=== PATIENT | male | born 1980 | race Caucasian/White ===

== ENCOUNTER 2018-04-02 09:13 | Inpatient (IN) | payer SELFPAY ==
[~2018-04-02] VITALS: Ht 177.8 cm; Wt 81.6 kg
[~2018-04-02 09:13] MED LIST: BACL10TA PO; CYCL10TA2 PO; HYDR-2762 PO; HYDR-2766 PO; IBUP-1060 PO; VENL75CA PO
[2018-04-02] MEDS ORDERED: IV NORMAL SALINE 1000ML BAG 1,000 ML IV ONE ×2 (09:45→15:00)
[2018-04-02 09:56] LABS: BASO # 0.1 x10^3/uL (0.0-0.2); BASO % 1 % (0-3); EOS % 0 % (0-3); HEMATOCRIT 40.5 % (39.0-53.0); HEMOGLOBIN 13.9 g/dL (13.0-17.5); LYMPH # 2.8 x10^3/uL (1.0-4.8); LYMPH % 33 % (24-48); MEAN CORPUSCULAR HEMOGLOBIN 30 pg (25-35); MEAN CORPUSCULAR HGB CONC 34 g/dL (31-37); MEAN CORPUSCULAR VOLUME 86 fL (79-100); MONO # 0.8 x10^3/uL (0.0-1.1); MONO % 9 % (0-9); NEUT % 58 % (31-73); PLATELET COUNT 414 x10^3/uL (140-400); RED CELL DISTRIBUTION WIDTH 13.2 % (11.5-14.5); WHITE BLOOD COUNT 8.7 x10^3/uL (4.0-11.0)
[2018-04-02 10:11] LABS: CALCIUM 10.3 mg/dL (8.5-10.1); CREATININE 1.2 mg/dL (0.7-1.3); GFR 68.9; POTASSIUM 3.4 mmol/L (3.5-5.1)
[2018-04-02 10:16] LABS: ALBUMIN 4.3 g/dL (3.4-5.0); TOTAL BILIRUBIN 0.5 mg/dL (0.2-1.0); TOTAL PROTEIN 8.5 g/dL (6.4-8.2)
[2018-04-02 10:17] LABS: ACETAMIN < 2 mcg/ml (10-30)
[2018-04-02 10:18] LABS: ETHANOL < 10 mg/dL (0-10)
--- NOTE | 2018-04-02 10:20 | EKG ---
[facility] [address] [place] [address] Test Date: 2018-04-02 Test Time: 10:09:28 Pat Name: JERRELL MARTIN Department: Room: Gender: M Bulk Mail Clerk: : 1980 Requested By: CORRIE AZEVEDO Order Number: [id number] Reading MD: Jose Ellsworth MD Measurements Intervals Delight Rate: 100 P: 32 OH: 128 QRS: 29 QRSD: 98 T: 26 QT: 346 QTc: 449 Interpretive Statements SINUS RHYTHM Electronically Signed On 04-06-2018 10:57:46 CDT by Jose Ellsworth MD
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
[2018-04-02 11:39] LABS: BARBITURATES NEG (NEG); BENZODIAZEPINES NEG (NEG); CANNABINOIDS POS (NEG); COCAINE NEG (NEG); METHADONE NEG (NEG); OPIATES POS (NEG); PHENCYCLIDINE NEG (NEG)
[2018-04-02 11:49] LABS: AMPHETAMINE/METHAMPHETAMINE POS (NEG)
[2018-04-02] MEDS ORDERED: ZIPRASIDONE IM 20 MG VIAL. IM ONE ×2 (14:05→14:15)
[2018-04-02] MEDS ORDERED: HALOPERIDOL LACTATE 5 MG/ML VIAL. IM ONE (17:15)
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
[2018-04-02] MEDS ORDERED: HALOPERIDOL LACTATE 5 MG/ML VIAL. IVP PRN (18:15)
[2018-04-02 18:19] VITALS: BP 107/68
[2018-04-03 03:00] VITALS: BP 103/78
[2018-04-03 07:00] VITALS: BP 125/86
[2018-04-03] MEDS ORDERED: POTASSIUM CHLORIDE 20 MEQ TABLET.ER. PO SCH (08:00)
[2018-04-03 11:00] VITALS: BP 121/79
--- NOTE | 2018-04-03 11:19 | PDOC ---
PROGRESS NOTES Chief Complaint Chief Complaint acute toxic encephalopathy drug induced psychosis psychotic behaviour in the ER, History of Present Illness History of Present Illness PAT team discussed, he is repeated behavior, may need placement will try to DC 1:1 Vitals Vitals Vital Signs Date Time Temp Pulse Resp B/P (MAP) Pulse Ox O2 Delivery O2 Flow Rate FiO2 04/03/18 08:00 Room Air 04/03/18 07:00 98.7 80 20 125/86 (99) 96 98.7 Physical Exam General: Alert, Cooperative, No acute distress, Other Heart: Regular rate Abdomen: Normal bowel sounds, Soft Extremities: No edema, Normal pulses Skin: No rashes Labs LABS Laboratory Tests Test 04/02/18 11:26 Urine Opiates Screen Pos (NEG) Urine Methadone Screen Neg (NEG) Urine Barbiturates Neg (NEG) Urine Phencyclidine Screen Neg (NEG) Urine Amphetamine/Methamphetamine Pos (NEG) Urine Benzodiazepines Screen Neg (NEG) Urine Cocaine Screen Neg (NEG) Urine Cannabinoids Screen Pos (NEG) Urine Ethyl Alcohol Neg (NEG) Assessment and Plan Assessmemt and Plan Problems Medical Problems: (1) Anxiety Status: Acute (2) Drug-induced psychotic disorder with hallucinations Status: Acute (3) Methamphetamine abuse Status: Acute (4) Methamphetamine intoxication Status: Acute Comment Review of Relevant I have reviewed the following items alexey (where applicable) has been applied. Labs Laboratory Tests Test 04/02/18 09:40 04/02/18 11:26 White Blood Count 8.7 x10^3/uL (4.0-11.0) Red Blood Count 4.70 x10^6/uL (4.30-5.70) Hemoglobin 13.9 g/dL (13.0-17.5) Hematocrit 40.5 % (39.0-53.0) Mean Corpuscular Volume 86 fL (79-100) Mean Corpuscular Hemoglobin 30 pg (25-35) Mean Corpuscular Hemoglobin Concent 34 g/dL (31-37) Red Cell Distribution Width 13.2 % (11.5-14.5) Platelet Count 414 x10^3/uL (140-400) Neutrophils (%) (Auto) 58 % (31-73) Lymphocytes (%) (Auto) 33 % (24-48) Monocytes (%) (Auto) 9 % (0-9) Eosinophils (%) (Auto) 0 % (0-3) Basophils (%) (Auto) 1 % (0-3) Neutrophils # (Auto) 5.0 x10^3uL (1.8-7.7) Lymphocytes # (Auto) 2.8 x10^3/uL (1.0-4.8) Monocytes # (Auto) 0.8 x10^3/uL (0.0-1.1) Eosinophils # (Auto) 0.0 x10^3/uL (0.0-0.7) Basophils # (Auto) 0.1 x10^3/uL (0.0-0.2) Sodium Level 141 mmol/L (136-145) Potassium Level 3.4 mmol/L (3.5-5.1) Chloride Level 101 mmol/L (98-107) Carbon Dioxide Level 23 mmol/L (21-32) Anion Gap 17 (6-14) Blood Urea Nitrogen 17 mg/dL (8-26) Creatinine 1.2 mg/dL (0.7-1.3) Estimated GFR (Cockcroft-Gault) 68.9 BUN/Creatinine Ratio 14 (6-20) Glucose Level 100 mg/dL (70-99) Calcium Level 10.3 mg/dL (8.5-10.1) Total Bilirubin 0.5 mg/dL (0.2-1.0) Aspartate Amino Transf (AST/SGOT) 21 U/L (15-37) Alanine Aminotransferase (ALT/SGPT) 40 U/L (16-63) Alkaline Phosphatase 86 U/L (46-116) Total Protein 8.5 g/dL (6.4-8.2) Albumin 4.3 g/dL (3.4-5.0) Albumin/Globulin Ratio 1.0 (1.0-1.7) Salicylates Level 3.0 mg/dL (2.8-20.0) Salicylate Last Dose Date Ukn Salicylate Last Dose Time Ukn Acetaminophen Level < 2 mcg/ml (10-30) Acetaminophen Last Dose Date Ukn Acetaminophen Last Dose Time Ukn Ethyl Alcohol Level < 10 mg/dL (0-10) Urine Opiates Screen Pos (NEG) Urine Methadone Screen Neg (NEG) Urine Barbiturates Neg (NEG) Urine Phencyclidine Screen Neg (NEG) Urine Amphetamine/Methamphetamine Pos (NEG) Urine Benzodiazepines Screen Neg (NEG) Urine Cocaine Screen Neg (NEG) Urine Cannabinoids Screen Pos (NEG) Urine Ethyl Alcohol Neg (NEG) Laboratory Tests Test 04/02/18 11:26 Urine Opiates Screen Pos (NEG) Urine Methadone Screen Neg (NEG) Urine Barbiturates Neg (NEG) Urine Phencyclidine Screen Neg (NEG) Urine Amphetamine/Methamphetamine Pos (NEG) Urine Benzodiazepines Screen Neg (NEG) Urine Cocaine Screen Neg (NEG) Urine Cannabinoids Screen Pos (NEG) Urine Ethyl Alcohol Neg (NEG) Medications Current Medications Sodium Chloride 1,000 ml @ 1,000 mls/hr 1X ONCE IV Last administered on at 09:53; Start 04/02/18 at 09:45; Stop 04/02/18 at 10:44; Status DC Lorazepam (Ativan) 1 mg 1X ONCE IV Last administered on 04/02/18at 09:54; Start 04/02/18 at 09:45; Stop 04/02/18 at 09:46; Status DC Lorazepam (Ativan) 1 mg 1X ONCE IV ; Start 04/02/18 at 13:45; Stop 04/02/18 at 13:46; Status DC Ziprasidone (Geodon Im) 20 mg 1X ONCE IM Last administered on 04/02/18at 14:20 ; Start 04/02/18 at 14:15; Stop 04/02/18 at 14:18; Status DC Ziprasidone (Geodon Im) 20 mg STK-MED ONCE IM ; Start 04/02/18 at 14:05; Stop 04/02/18 at 14:07; Status DC Sodium Chloride 1,000 ml @ 1,000 mls/hr 1X ONCE IV Last administered on at 16:59; Start 04/02/18 at 15:00; Stop 04/02/18 at 15:59; Status DC Lorazepam (Ativan) 2 mg 1X ONCE IV ; Start 04/02/18 at 16:15; Stop 04/02/18 at 16:16; Status DC Haloperidol Lactate (Haldol Inj) 5 mg 1X ONCE IM Last administered on at 17:00; Start 04/02/18 at 17:15; Stop 04/02/18 at 17:16; Status DC Haloperidol Lactate (Haldol Inj) 5 mg PRN Q6HRS PRN IVP AGITATION Last administered on 04/02/18at 19:41; Start 04/02/18 at 18:15 Lorazepam (Ativan) 2 mg PRN Q4HRS PRN IV ANXIETY / AGITATION Last administered on 04/03/18at 08:07; Start 04/02/18 at 18:15 Potassium Chloride (Klor-Con) 20 meq [id number] PO Last administered on at 08:07; Start 04/03/18 at 08:00 Lorazepam (Ativan) 2 mg 1X ONCE IV Last administered on 04/03/18at 01:00; Start 04/03/18 at 01:00; Stop 04/03/18 at 01:01; Status DC Active Scripts Active Reported Cyclobenzaprine Hcl 10 Mg Tablet 1 Tab PO TID PRN Hydrocodone-Apap 10-325 (Hydrocodone Bit/Acetaminophen) 1 Each Tablet 1 Tab PO PRN Q6HRS PRN Effexor Xr (Venlafaxine Hcl) 75 Mg Cap.er.24h 1.5 Cap PO BID Ibuprofen 800 Mg Tablet 800 Mg PO TID PRN Vitals/I & O Vital Sign - Last 24 Hours 04/02/18 04/02/18 04/02/18 04/02/18 11:23 14:27 15:00 15:30 Pulse 128 118 98 88 Resp 28 28 20 14 B/P (MAP) 136/86 (103) 98/55 (69) 96/47 (63) 87/57 (67) Pulse Ox 94 94 92 98 O2 Delivery Room Air Room Air Room Air Room Air 04/02/18 04/02/18 04/02/18 04/02/18 16:00 16:30 17:00 17:30 Pulse 88 92 84 92 Resp 20 18 20 18 B/P (MAP) 98/57 (71) 93/55 (68) 105/65 (78) 119/67 (84) Pulse Ox 98 98 98 98 O2 Delivery Room Air Room Air Room Air Room Air 04/02/18 04/02/18 04/03/18 04/03/18 18:19 20:00 03:00 07:00 Temp 98.7 98.2 98.7 98.7 98.2 98.7 Pulse 81 74 80 Resp 20 16 20 B/P (MAP) 107/68 (81) 103/78 (86) 125/86 (99) Pulse Ox 100 98 96 O2 Delivery Room Air Room Air Room Air Room Air 04/03/18 08:00 O2 Delivery Room Air Intake and Output 04/02/18 04/02/18 04/03/18 15:00 23:00 07:00 Intake Total 1000 ml Output Total 0 ml Balance 1000 ml 0 ml CHERRI SHANKS MD Apr 03, 2018 11:19
[2018-04-03] MEDS ORDERED: VENL75CA PO (12:43)
--- NOTE | 2018-04-03 12:47 | PDOC3 ---
Discharge Summary Visit Information Date of Admission: Apr 02, 2018 Date of Discharge: Apr 03, 2018 Admitting Diagnosis: delirium, agitation, Final Diagnosis acute toxic encephalopathy drug induced psychosis psychotic behaviour in the ER, depression, had been off meds substance abuse, meth, THC, painmeds Problems Medical Problems: (1) Anxiety Status: Acute (2) Drug-induced psychotic disorder with hallucinations Status: Acute (3) Methamphetamine abuse Status: Acute (4) Methamphetamine intoxication Status: Acute Brief Hospital Course Allergies Allergies Coded Allergies Type Severity Reaction Last Updated Verified tramadol Adverse Reaction Severe 12/14/15 Yes Vital Signs Vital Signs Date Time Temp Pulse Resp B/P (MAP) Pulse Ox O2 Delivery O2 Flow Rate FiO2 04/03/18 11:00 98.0 57 20 121/79 (93) 93 Room Air 98.0 Lab Results Laboratory Tests Test 04/02/18 09:40 04/02/18 11:26 White Blood Count 8.7 x10^3/uL (4.0-11.0) Red Blood Count 4.70 x10^6/uL (4.30-5.70) Hemoglobin 13.9 g/dL (13.0-17.5) Hematocrit 40.5 % (39.0-53.0) Mean Corpuscular Volume 86 fL (79-100) Mean Corpuscular Hemoglobin 30 pg (25-35) Mean Corpuscular Hemoglobin Concent 34 g/dL (31-37) Red Cell Distribution Width 13.2 % (11.5-14.5) Platelet Count 414 x10^3/uL (140-400) Neutrophils (%) (Auto) 58 % (31-73) Lymphocytes (%) (Auto) 33 % (24-48) Monocytes (%) (Auto) 9 % (0-9) Eosinophils (%) (Auto) 0 % (0-3) Basophils (%) (Auto) 1 % (0-3) Neutrophils # (Auto) 5.0 x10^3uL (1.8-7.7) Lymphocytes # (Auto) 2.8 x10^3/uL (1.0-4.8) Monocytes # (Auto) 0.8 x10^3/uL (0.0-1.1) Eosinophils # (Auto) 0.0 x10^3/uL (0.0-0.7) Basophils # (Auto) 0.1 x10^3/uL (0.0-0.2) Sodium Level 141 mmol/L (136-145) Potassium Level 3.4 mmol/L (3.5-5.1) Chloride Level 101 mmol/L (98-107) Carbon Dioxide Level 23 mmol/L (21-32) Anion Gap 17 (6-14) Blood Urea Nitrogen 17 mg/dL (8-26) Creatinine 1.2 mg/dL (0.7-1.3) Estimated GFR (Cockcroft-Gault) 68.9 BUN/Creatinine Ratio 14 (6-20) Glucose Level 100 mg/dL (70-99) Calcium Level 10.3 mg/dL (8.5-10.1) Total Bilirubin 0.5 mg/dL (0.2-1.0) Aspartate Amino Transf (AST/SGOT) 21 U/L (15-37) Alanine Aminotransferase (ALT/SGPT) 40 U/L (16-63) Alkaline Phosphatase 86 U/L (46-116) Total Protein 8.5 g/dL (6.4-8.2) Albumin 4.3 g/dL (3.4-5.0) Albumin/Globulin Ratio 1.0 (1.0-1.7) Salicylates Level 3.0 mg/dL (2.8-20.0) Salicylate Last Dose Date Ukn Salicylate Last Dose Time Ukn Acetaminophen Level < 2 mcg/ml (10-30) Acetaminophen Last Dose Date Ukn Acetaminophen Last Dose Time Ukn Ethyl Alcohol Level < 10 mg/dL (0-10) Urine Opiates Screen Pos (NEG) Urine Methadone Screen Neg (NEG) Urine Barbiturates Neg (NEG) Urine Phencyclidine Screen Neg (NEG) Urine Amphetamine/Methamphetamine Pos (NEG) Urine Benzodiazepines Screen Neg (NEG) Urine Cocaine Screen Neg (NEG) Urine Cannabinoids Screen Pos (NEG) Urine Ethyl Alcohol Neg (NEG) Brief Hospital Course Mr. Mckinnon is a 37 old MALE admit for drug induced psychosis, meth abuse, PAT team discussed, he is repeated behavior, was on 1:1 onvernight, then better will follow up outpatient, depression med restarted Discharge Information Condition at Discharge: Improved Follow Up: Weeks Disposition/Orders: D/C to Home Scheduled Venlafaxine Hcl (Effexor Xr) 75 Mg Cap.er.24h, 1 CAP PO BID, #60 Prescribed by: CHERRI SHANKS on 04/03/18 1243 Scheduled PRN Cyclobenzaprine Hcl (Cyclobenzaprine Hcl) 10 Mg Tablet, 1 TAB PO TID PRN for MUSCLE SPASMS, #90 (Reported) Entered as Reported by: LUIS REZA on 03/18/16 0852 Hydrocodone Bit/Acetaminophen (Hydrocodone-Apap 10-325 ) 1 Each Tablet, 1 TAB PO PRN Q6HRS PRN for PAIN, Ref 0 (Reported) Entered as Reported by: LUIS REZA on 03/18/16 0852 Ibuprofen (Ibuprofen) 800 Mg Tablet, 800 MG PO TID PRN for INFLAMMATION, ( Reported) Entered as Reported by: LUIS REZA on 12/14/15 1125 Patient Instructions Patient Instructions > 30 min CHERRI SHANKS MD Apr 03, 2018 12:47
[2018-04-03 15:00] VITALS: BP 122/83
== END 2018-04-03 18:15 | disposition home or self-care (01) | DRG 896 ==
LOC: ER 09:13 → 5 SOUTH 16:05
PROVIDERS: ADMIT Internal Medicine; ATTEND Internal Medicine
DX: F15.159 Other stimulant abuse with stimulant-induced psychotic disorder, unspecified (principal); G92 Toxic encephalopathy; R45.851 Suicidal ideations; F15.129 Other stimulant abuse with intoxication, unspecified; E78.00 Pure hypercholesterolemia, unspecified; F17.200 Nicotine dependence, unspecified, uncomplicated; F41.9 Anxiety disorder, unspecified; F12.10 Cannabis abuse, uncomplicated; I10 Essential (primary) hypertension; F31.9 Bipolar disorder, unspecified; Z88.8 Allergy status to other drugs, medicaments and biological substances; Z79.899 Other long term (current) drug therapy
CPT/HCPCS: 36415; 80053; 80307; 80329; 85025; 93005; 96361; 96372; 96374; G0480; G6039; J1630; J2060; J3486; J7030; 99285-25; G0479

== ENCOUNTER 2018-11-21 20:58 | Emergency (ER) | payer SELFPAY ==
[~2018-11-21] VITALS: Ht 175.3 cm; Wt 80.5 kg
[~2018-11-21 20:58] MED LIST changes: -HYDR-2762 PO; +HYDR-2765 PO; -HYDR-2766 PO; +HYDR-2769 PO
[2018-11-21 21:25] LABS: BASO # 0.1 x10^3/uL (0.0-0.2); BASO % 1 % (0-3); EOS # 0.1 x10^3/uL (0.0-0.7); EOS % 1 % (0-3); HEMATOCRIT 41.4 % (39.0-53.0); HEMOGLOBIN 14.3 g/dL (13.0-17.5); LYMPH # 2.4 x10^3/uL (1.0-4.8); LYMPH % 22 % (24-48); MEAN CORPUSCULAR HEMOGLOBIN 29 pg (25-35); MEAN CORPUSCULAR HGB CONC 35 g/dL (31-37); MEAN CORPUSCULAR VOLUME 84 fL (79-100); MONO # 0.6 x10^3/uL (0.0-1.1); MONO % 6 % (0-9); NEUT # 7.4 x10^3uL (1.8-7.7); NEUT % 70 % (31-73); PLATELET COUNT 341 x10^3/uL (140-400); RED BLOOD COUNT 4.92 x10^6/uL (4.30-5.70); RED CELL DISTRIBUTION WIDTH 13.4 % (11.5-14.5); WHITE BLOOD COUNT 10.6 x10^3/uL (4.0-11.0)
[2018-11-21 21:33] LABS: CALCIUM 9.8 mg/dL (8.5-10.1); CREATININE 1.6 mg/dL (0.7-1.3); GFR 49.4; POTASSIUM 3.6 mmol/L (3.5-5.1)
[2018-11-21 21:35] LABS: PROTHROMBIN TIME PATIENT 12.8 SEC (11.7-14.0)
[2018-11-21 21:39] LABS: ALBUMIN/GLOBULIN RATIO 1.1 (1.0-1.7); MAGNESIUM 2.3 mg/dL (1.8-2.4); TOTAL BILIRUBIN 0.4 mg/dL (0.2-1.0); TOTAL PROTEIN 7.8 g/dL (6.4-8.2)
[2018-11-21] MEDS ORDERED: CONTRAST GIVEN. MC PRN (21:45)
[2018-11-21 21:50] LABS: BILIRUBIN,URINE NEGATIVE (NEG); CLARITY,URINE CLOUDY; COLOR,URINE YELLOW; NITRITE,URINE NEGATIVE (NEG); PROTEIN,URINE 100 mg/dL (NEG-TRACE); UROBILINOGEN,URINE 0.2 mg/dL (0.2 mg/dL)
[2018-11-21 21:56] LABS: AMPHETAMINE/METHAMPHETAMINE POS (NEG); BARBITURATES NEG (NEG); BENZODIAZEPINES NEG (NEG); CANNABINOIDS POS (NEG); COCAINE NEG (NEG); METHADONE NEG (NEG); OPIATES POS (NEG); PHENCYCLIDINE NEG (NEG)
[2018-11-21 21:59] LABS: HYALINE CASTS, URINE MODERATE /HPF
[2018-11-21 22:00] LABS: AMORPHOUS SEDIMENT,UR PRESENT /HPF; BACTERIA,URINE 0 /HPF (0-FEW); GRANULAR CASTS,URINE FEW /HPF
[2018-11-21] MEDS ORDERED: IV NORMAL SALINE 1000ML BAG 1,000 ML IV ONE (22:00)
[2018-11-21] MEDS ORDERED: IOHEXOL 300 MG/ML 100ML VIAL. IV ONE (22:00)
[2018-11-21] MEDS ORDERED: fentaNYL PF VIAL 100 MCG/2 ML VIAL IV ONE (22:00)
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
[2018-11-21] MEDS ORDERED: ORPH100T PO (23:06)
[2018-11-21] MEDS ORDERED: HYDR-3164 PO (23:06)
[2018-11-21] MEDS ORDERED: NEOMY/BACITR/POLYMYXIN OINT PACKET. TP ONE (23:30)
[2018-11-21] MEDS ORDERED: HYDROcodone/APAP 5/325MG 1 TAB TABLET PO ONE (23:30)
[2018-11-21] MEDS ORDERED: LIDOCAINE 2%/EPI 1:100,000 20 ML VIAL. IJ ONE (23:30)
[2018-11-22] MEDS ORDERED: DIPHTH,PERTUSS(ACELL),TET TOX 0.5 ML DISP.SYRIN. VAX IM ONE
[2018-11-22 00:18] VITALS: BP 120/75
--- NOTE | 2018-11-22 14:28 | EKG ---
[facility] [address] [place] [address] Test Date: 2018-11-21 Test Time: 21:10:11 Pat Name: JERRELL MARTIN Department: Room: Gender: M Siphoner: : 1980 Requested By: AMIRA GODDARD Order Number: [id number] Reading MD: Measurements Intervals [place] Rate: 109 P: 37 AR: 124 QRS: 45 QRSD: 100 T: 31 QT: 312 QTc: 427 Interpretive Statements SINUS TACHYCARDIA NON SPECIFIC ST-T ABNORMALITY (ELEVATION) OTHERWISE NORMAL ECG No previous ECG available for comparison
== END 2018-11-22 00:42 | disposition home or self-care (01) ==
LOC: EEVIPCON 20:58 → ER 20:58
DX: S01.81XA Laceration without foreign body of other part of head, initial encounter (principal); S20.219A Contusion of unspecified front wall of thorax, initial encounter; M54.2 Cervicalgia; F31.9 Bipolar disorder, unspecified; E78.00 Pure hypercholesterolemia, unspecified; I10 Essential (primary) hypertension; Z88.5 Allergy status to narcotic agent; Y04.8XXA Assault by other bodily force, initial encounter; Y93.89 Activity, other specified; Y92.89 Other specified places as the place of occurrence of the external cause; Y99.8 Other external cause status
CPT/HCPCS: 12011; 36415; 70450; 71260; 72125; 74177; 80053; 80307; 81001; 83690; 83735; 85025; 85610; 85730; 90471; 90715; 93005; 96374; 99285; G0480; J3010; J3490; J7030; Q9967